=== PATIENT | female | born 1995 | race Caucasian/White ===

== ENCOUNTER 2017-10-29 20:48 | Emergency (ER) | payer BC, OTHER ==
[~2017-10-29] VITALS: Ht 165.1 cm; Wt 40.6 kg
[2017-10-29 20:52] VITALS: TEMP 36.7; Ht 165.1 cm; Wt 40.6 kg
[2017-10-29 22:06] VITALS: BP 96/58; PULSE 82; O2SAT 100
--- NOTE | 2017-10-30 04:52 | EMERGENCY ROOM VISIT NOTE ---
History First contact with patient: 21:43 Chief Complaint: EYE ASSESSMENT Stated Complaint: TROUBLE WITH EYES History of Present Illness The patient is a 22 year old female who presents to the Emergency Room with complaints of blurriness in her eyes that occurred earlier this afternoon. The patient states that she took a nap earlier today, and when she awoke she felt like she had difficulty seeing, describing this as a blurriness across both of her eyes. The patient does wear glasses and had an eye doctor appointment a few months ago. She did not have pain, drainage, or discharge from the eyes. She states that after about 30 minutes to 1 hour her vision was completely back to normal. She was not experiencing any visual floaters or headache symptoms. No numbness or paresthesias. No temporal pain. The patient is reportedly healthy and does not take anything other than vitamins. She does admit that she may be , as her last menstrual period was 7 weeks ago. She does have an appointment with OB next week. The patient rates her current discomfort as 0/10. Review of Systems More than 10 systems were reviewed and otherwise negative with the exception of history of present illness. Past Medical/Surgical History Medical Problems: (1) Head Injury, Nos (2) Head Injury, Nos (3) Nausea With Vomiting Family History FHx: migraine headaches Social History Smoking Status: Never Smoker Housing Status: lives with family Occupation Status: student Physical Exam Vital Signs Date Time Temp Pulse Resp B/P (MAP) Pulse Ox O2 Delivery O2 Flow Rate FiO2 10/29/17 22:06 82 16 96/58 100 10/29/17 20:52 36.7 110 20 105/68 100 Room Air Physical Exam VITALS: Vitals are noted on the nurse's note and reviewed by myself. Vital signs stable. Visual acuity is 20/20 bilateral with correction GENERAL: Well-developed, well-nourished, white female, who is in no acute distress and resting comfortably. Patient is cooperative with the examination. HEAD: Normocephalic atraumatic. EARS: External ear normal. External auditory canals clear, tympanic membranes pearly gore without erythema or effusion bilaterally. EYES: Pupils equal round and reactive to light and accommodation. Conjunctivae without injection, sclerae without icterus. Extraocular movements intact. Fluorescein exam does not reveal foreign body or ulceration/abrasion. No evidence of conjunctivitis. NOSE: Patent, turbinates without inflammation or discharge. MOUTH: Mucous membranes moist. Tonsils are not enlarged. Pharynx without erythema, blood, or exudate. Uvula midline. Airway patent. NECK: Supple without nuchal rigidity. No lymphadenopathy. No thyromegaly. Cervical spine is nontender. HEART: Regular rate and rhythm without murmurs gallops or rubs. LUNGS: Clear to auscultation bilaterally without wheezes, rales or rhonchi. No retractions or accessory muscle use. Medical Decision & Procedures ED Course Physical exam and history were performed. Nursing notes, EMR, and Medication List were personally reviewed. Patient appears to have had blurriness in her eyes after waking from a nap this afternoon. On examination the patient appears well and nontoxic. She does not have other symptoms and is feeling completely back to normal. The patient did not have headache or eye pain at the time of her symptoms. She does not have a history of atypical migraines or demyelinating process. The patient does not appear to have symptoms consistent with stroke or vertebral artery dissection. She does not have foreign body on exam, nor does she have abrasion/ulceration. Overall the patient appears well for discharge home. Her symptoms are likely benign, and could be related to rubbing her eyes while sleeping or possible viral/allergic etiology. The patient does follow with an eye doctor and will be referred back to their care if she has any persisting symptoms. The patient was otherwise invited back to the ER with any new, worsening, or concerning symptoms. The chart was completed utilizing [employer] Speech Voice Recognition Software. Grammatical errors, random word insertions, pronoun errors, and incomplete sentences are an occasional consequence of this system due to software limitations, ambient noise, and hardware issues. Any formal questions or concerns about the content, text, or information contained within the body of this dictation should be directly addressed to the provider for clarification. . Medical Decision Differential diagnosis includes, but is not limited to: Abrasion, foreign body, laceration, conjunctivitis, neurologic deficit, glaucoma, atypical migraine, demyelinating disorder, stroke, and others Impression Primary Impression: Visual blurriness Departure Information Dispostion Home / Self-Care Condition GOOD Forms HOME CARE DOCUMENTATION FORM, IMPORTANT VISIT INFORMATION Patient Instructions My [facility] Additional Instructions You were seen and evaluated today on an emergency basis only. This is not a substitute for, or an effort to provide, complete comprehensive medical care. It is not possible to recognize and treat all injuries or illnesses in a single emergency department visit. For this reason it is recommended that you followup with your oil sprayer/ vice president of procurement if symptoms persist over the next 3-4 days. Consider using [id number] rewetting drops two or three times daily You are welcome to return to the emergency department anytime with new, worsening, or concerning symptoms.
== END 2017-10-29 22:07 | disposition home or self-care (01) ==
LOC: C.EDB 20:49 → C.EDC 22:07
DX: H53.8 Other visual disturbances (principal)

== ENCOUNTER → 2017-10-30 | Outpatient (CLI) | payer OTHER | END | disposition home or self-care (01) | LOC: C.LABSPEC 16:52 | PROVIDERS: ATTEND Obstetrics & Gynecology | DX: Z34.01 Encounter for supervision of normal first pregnancy, first trimester (principal) ==

== ENCOUNTER → 2017-11-05 | Outpatient (CLI) | payer OTHER ==
[2017-11-05 16:35] LABS: BASO % 0.2 %; BASO ABS # 0.02 K/uL (0-0.2); EOS % 0.2 %; EOS ABS # 0.02 K/uL (0-0.5); HEMATOCRIT 35.9 % (37-47); HEMOGLOBIN 12.1 g/dL (12.0-16.0); IG# 0.02 K/uL (0.00-0.02); LYMPH % 20.2 %; LYMPH ABS # 1.68 K/uL (1.2-3.4); MEAN CELL VOLUME 85.1 fL (80-100); MEAN CORPUSCULAR HEMOGLOBIN 28.7 pg (25-34); MEAN CORPUSCULAR HGB CONC 33.7 g/dl (32-36); MEAN PLATELET VOLUME 10.7 fL (7.4-10.4); MONO % 4.9 %; MONO ABS # 0.41 K/uL (0.11-0.59); NEUT % 74.3 %; NEUT ABS # 6.18 K/uL (1.4-6.5); PLATELET COUNT 260 K/uL (130-400); RED CELL DISTRIBUTION WIDTH CV 12.5 % (11.5-14.5); RED CELL DISTRIBUTION WIDTH SD 38.6 fL (36.4-46.3); WHITE BLOOD COUNT 8.33 K/uL (4.8-10.8)
== END | disposition home or self-care (01) ==
LOC: C.LAB1850 15:05
PROVIDERS: ATTEND Obstetrics & Gynecology
DX: Z34.01 Encounter for supervision of normal first pregnancy, first trimester (principal)

== ENCOUNTER 2018-06-18 05:04 | Inpatient (IN) ==
[2018-06-18] MEDS ORDERED: OXYTOCIN 30 UNITS/500 ML BAG IV PRN (08:51)
[2018-06-18] MEDS ORDERED: LACTATED RINGER'S 1,000 ML IV PRN ×2 (08:51→09:30)
--- NOTE | 2018-06-18 08:55 | Labor Progress Brief Note ---
Date of Service June 18, 2018 Subjective 23yo at 40 3/7 with onset of painful contractions. Examined earlier this AM by RN and felt to be 2cm. No LOF, VB. +FM. Assessment & Plan (1) Normal labor and delivery: Patient will be admitted for active labor. Requesting epidural; aware of need for stat labs and IV placement first. GBS neg. Rh pos. Physical Exam Vital Signs (Past 24 Hours): Last Vital Signs Temp 36.4 C L 06/18/18 07:20 Pulse 92 H 06/18/18 07:20 Resp 20 06/18/18 07:20 BP 105/61 06/18/18 07:20 Physical Exam: FHT Cat 1 [place] Q2 Cvx 6/100/-2 No ROM, bulging intact bag Palpable vertex.
[2018-06-18] MEDS ORDERED: LACTATED RINGER'S 1,000 ML IV SCH (09:00)
[2018-06-18 09:12] LABS: Hematocrit (blood only) 35.1 % (37-47); Hemoglobin 11.7 g/dL (12.0-16.0); Mean Corpuscular Volume 91.4 fL (80-100); Mean Platelet Volume 10.8 fL (7.4-10.4); Platelet Count 247 K/uL (130-400); RDW Standard Deviation 46.3 fL (36.4-46.3); Red Blood Count 3.84 M/uL (4.2-5.4); White Blood Count 12.83 K/uL (4.8-10.8)
[2018-06-18] MEDS ORDERED: BUPIVACAINE 0.25% 30 ML VIAL ONE (09:12)
[2018-06-18] MEDS ORDERED: ePHEDrine sulfate 50 MG/ML AMP ONE (09:12)
[2018-06-18] MEDS ORDERED: fentaNYL 2MCG/ML ROPIV 1.25MG/ML 100 ML BAG EPI ONE (09:13)
[2018-06-18] MEDS ORDERED: fentaNYL citrate 100 MCG/2 ML VIAL ONE (09:13)
[2018-06-18 09:25] LABS: Mean Corpuscular Hgb Conc 33.3 g/dL (32-36)
[2018-06-18] MEDS ORDERED: NALBUPHINE HCL INJ 10 MG/ML AMP IV PRN (09:30)
[2018-06-18] MEDS ORDERED: NALOXONE HCL 1 MG in SODIUM CHLORIDE 0.9% 1000ML 1,000 ML IV PRN (09:30)
[2018-06-18] MEDS ORDERED: ONDANSETRON INJ 2 MG/ML 2 ML VIAL IV PRN (09:30)
[2018-06-18] MEDS ORDERED: NALOXONE HCL 0.4 MG/1 ML VIAL/CARP IV PRN (09:30)
[2018-06-18] MEDS ORDERED: fentaNYL 2MCG/ML ROPIV 1.25MG/ML 100 ML BAG EPI PRN (09:30)
[2018-06-18] MEDS ORDERED: ePHEDrine sulfate 50 MG/ML AMP IV PRN (09:30)
[2018-06-18] MEDS ORDERED: DiphenhydrAMINE HCL 50 MG/ML VIAL IV PRN (09:30)
--- NOTE | 2018-06-18 09:31 | Anesthesiology Consultation ---
Date of Service June 18, 2018 Assessment & Plan (1) Encounter for pre-operative examination: Chart Review Chart Review: Patient NOT seen in Pre Admission Testing and Acceptable Risk for Labor Epidural Consults Requested none History Height/Weight Height: 5 ft 5 in Weight: 59.421 kg Allergies Allergy/AdvReac Type Severity Reaction Status Date / Time No Known Allergies Allergy Mild Verified 06/18/18 05:56 Medications Home Medications Medication Instructions Recorded Confirmed Last Taken pedi multivit 43-iron fumarate 1 tab PO DAILY 06/18/18 06/18/18 06/17/18 21:00 [Flintstones Complete (iron)] Active Medications Generic Name Dose Route Start Last Admin Trade Name Freq PRN Reason Stop Dose Admin Lactated Ringer's 1,000 mls @ 999 mls/hr 06/18/18 08:51 06/18/18 09:00 Lr IV 07/18/18 08:50 999 mls/hr .Q1H1M PRN Administration (Pre-Anesthesia) Past Medical History Medical History First trimester Past Surgical History no surgeries Past Anesthesia History No Hx of Anesthesia Complications and No Family Hx of Anesthesia Complications History of PONV No Motion Sickness Screening History of Motion Sickness: No Social History Smoking Status: Never smoker Hx Alcohol Use: No Hx Substance Use: No substance use type: does not use Exercise / Class Metabolic Activity II 4-5 Yardwork/Stairs/Walk up hill Physical Exam Vital Signs Last Vital Signs Temp 36.4 C L 06/18/18 07:20 Pulse 92 H 06/18/18 07:20 Resp 20 06/18/18 07:20 BP 105/61 06/18/18 07:20 Testing Laboratory Results 06/18/18 09:01
--- NOTE | 2018-06-18 10:55 | Labor Progress Brief Note ---
Date of Service June 18, 2018 Subjective Comfortable with epidural. Assessment & Plan (1) Normal labor and delivery: Begins second stage at will. Physical Exam Vital Signs (Past 24 Hours): Last Vital Signs Temp 36.8 C 06/18/18 10:35 Pulse 93 H 06/18/18 10:50 Resp 20 06/18/18 10:35 BP 105/55 L 06/18/18 10:50 Pulse Ox 97 06/18/18 10:48 Physical Exam: FHT Cat 1 [place] Q2 SROM around an hour ago; LOF clear now with moderate bloody show Cvx 10/+1
[2018-06-18] MEDS ORDERED: HYDROCORTISONE ACETATE 25 MG SUPP PR PRN (12:21)
[2018-06-18] MEDS ORDERED: SUPERCREAM 0.870% 15 GM JAR EXT PRN (12:21)
[2018-06-18] MEDS ORDERED: DIPHTHERIA/TETANUS/PERTUSSIS 0.5 ML SYR/VIAL IM ONE (12:21)
[2018-06-18] MEDS ORDERED: BENZOCAINE 20% AER SPR 82.5 GM CAN EXT PRN (12:21)
[2018-06-18] MEDS ORDERED: OXYCODONE/ACETAMINOPHEN 5mg/325mg TAB PO PRN (12:21)
[2018-06-18] MEDS ORDERED: ACETAMINOPHEN 325 MG TAB PO PRN (12:21)
--- NOTE | 2018-06-18 12:21 | Procedure Note ---
Vaginal Delivery Summary Date of Service June 18, 2018 Vaginal Delivery Summary Patient pushed to deliver a viable female infant in AYAH position. The infant delivered with a compound presentation of the left arm. Shoulders delivered with no difficulty followed by the remainder of the body. The vigorous infant was placed on the maternal abdomen, cord was doubly clamped, and FOB cut the cord. The was provided with tactile stimulation and bulb suction. Examination of the cervix, vagina and perineum revealed a second degree laceration and a left labia minora laceration. These were repaired in the usual manner with vicryl suture, including a crown suture to rebuild the perineal body. The placenta then delivered spontaneously and was intact with a 3VC. At the completion of delivery the fundus was firm, lochia was minimal, and mom and infant were in stable condition.
[2018-06-18] MEDS: IBUPROFEN 600 MG TAB PO PRN ×2 (12:28→19:21)
--- NOTE | 2018-06-18 14:39 | Anesthesia Procedure Note ---
Date of Service June 18, 2018 Anesthesia Post Epidural Note Vital Signs Vital Signs: Temp Pulse Resp BP Pulse Ox 36.5 C 96 H 18 101/56 L 97 06/18/18 13:35 06/18/18 14:34 06/18/18 13:50 06/18/18 14:34 06/18/18 12:13 Pain Intensity Abdomen: Pain Intensity: 0 Notes Mental Status: alert / awake / arousable Patient Amnestic to Procedure: No Nausea / Vomiting: adequately controlled Pain: adequately controlled Airway Patency, RR, SpO2: stable & adequate BP & HR: stable & adequate Hydration State: stable & adequate Neuraxial Anesthesia: was administered and sensory block is resolving Anesthetic Complications: no major complications apparent and Pt Satisfied with anesthetic care Epidural: Removed without complications and With tip intact
[2018-06-18] MEDS: DOCUSATE SODIUM 100 MG CAP PO SCH (21:20)
[2018-06-19] MEDS: IBUPROFEN 600 MG TAB PO PRN ×3 (00:17→16:07)
[2018-06-19 06:36] LABS: Hematocrit (blood only) 31.3 % (37-47); Hemoglobin 10.8 g/dL (12.0-16.0); Mean Corpuscular Hgb Conc 34.5 g/dL (32-36); Mean Corpuscular Volume 91.3 fL (80-100); Mean Platelet Volume 10.7 fL (7.4-10.4); Platelet Count 217 K/uL (130-400); RDW Standard Deviation 46.6 fL (36.4-46.3); Red Blood Count 3.43 M/uL (4.2-5.4)
--- NOTE | 2018-06-19 06:43 | Obstetrical Progress Note ---
Date of Service June 19, 2018 Assessment & Plan (1) Spontaneous vaginal delivery: Ana Gallego is 23 y/o, , with at 40.3 weeks, GBS-, O+, Rubella immune, VDRL unreactive, G/C - - PPD #1 - encourage ambulation, , analgesics for pain relief, continue routine post- care. (2) Normal labor and delivery: Subjective Ambulation: ambulating normally Voiding: no voiding problems Passing Gas:: Yes Diet Tolerance:: regular diet Lochia:: Small Feeding Type:: breast feeding Ana torres pelvic discomfort from vaginal delivery yesterday that is improved with analgesics. She denies fever, chills, chest pain, shortness of breath, headache, nausea, vomiting. Physical Exam Vital Signs (Past 24 Hours) Last Vital Signs Temp 36.8 C 06/19/18 03:00 Pulse 97 H 06/19/18 03:00 Resp 18 06/19/18 03:00 BP 102/69 06/19/18 03:00 Pulse Ox 97 06/19/18 03:00 Constitutional WD/WN, vitals as above cooperative and comfortable Eyes + anicteric sclerae and EOM intact bilaterally Neck normal visual inspection and trachea midline Respiratory normal respiratory effort, lungs clear to auscultation Cardiovascular RRR, no murmur, no edema Gastrointestinal (Abdomen) Percussion/Palpation: abdomen soft; abdomen nontender uterine fundus is firm, non-tender, 2cm below umbilicus Musculoskeletal Head/Neck/Chest: normocephalic and head atraumatic Skin no rashes, warm and dry Neurologic moves all extremities and awake Psychiatric A+Ox3, euthymic affect Results & Data Laboratory Results Laboratory Results - last 24 hr 06/18/18 06/19/18 09:01 06:14 WBC 12.83 H 11.70 H RBC 3.84 L 3.43 L Hgb 11.7 L 10.8 L Hct 35.1 L 31.3 L MCV 91.4 91.3 MCH 30.5 31.5 MCHC 33.3 34.5 RDW Std Deviation 46.3 46.6 H RDW Coeff of Emiliano 14.0 14.0 Plt Count 247 217 MPV 10.8 H 10.7 H Medications Administered Acetaminophen (Tylenol) 650 mg PO Q6H PRN PRN Reason: Pain/ALMAGUER/Fever Stop: 07/18/18 12:20 Last Admin: 06/18/18 20:35 Dose: 650 mg Documented by: [id number] Benzocaine (Dermoplast Pain Relieving [place]) 1 appln EXT PRN PRN PRN Reason: Perineal Discomfort Stop: 07/18/18 12:20 Last Admin: 06/18/18 19:22 Dose: 1 appln Documented by: [id number] Docusate Sodium (Colace) 100 mg PO BID GIOVANA Stop: 07/18/18 20:59 Last Admin: 06/18/18 21:20 Dose: 100 mg Documented by: [id number] Ibuprofen (Motrin) 600 mg PO Q4H PRN PRN Reason: Pain/ALMAGUER/Cramping/Fever Stop: 07/18/18 12:20 Last Admin: 06/19/18 00:17 Dose: 600 mg Documented by: [id number] Admin: 06/18/18 19:21 Dose: 600 mg Documented by: [id number] Admin: 06/18/18 12:28 Dose: 600 mg Documented by: [id number]
[2018-06-19] MEDS: DOCUSATE SODIUM 100 MG CAP PO SCH ×2 (08:06→21:50)
[2018-06-19] MEDS ORDERED: PRENATAL VITAMIN 1 TAB PO SCH (09:00)
--- NOTE | 2018-06-20 06:32 | Obstetrical Progress Note ---
Date of Service <Herb Guajardo - Last Filed: 06/20/18 06:32> June 20, 2018 Assessment & Plan <Herb GuajardoDO - Last Filed: 06/20/18 06:32> (1) Spontaneous vaginal delivery: Ana Gallego is 23 y/o, , with at 40.3 weeks, GBS-, O+, Rubella immune, VDRL unreactive, G/C - - PPD #2 - encourage ambulation, , analgesics for pain relief, continue routine post- care until discharge home today - discharge instructions reviewed at bedside, all questions and concerns addressed (2) Normal labor and delivery: Subjective <Herb DO Bennett - Last Filed: 06/20/18 06:32> Ambulation: ambulating normally Voiding: no voiding problems Passing Gas:: Yes Diet Tolerance:: regular diet Lochia:: Small Feeding Type:: breast feeding Ana states she is doing well this morning and would like to be discharged home. There were no acute events overnight. She denies fevers, chills, headache, chest pain, shortness of breath, nausea, vomiting, difficulty with urination. Physical Exam <Herb Guajardo - Last Filed: 06/20/18 06:32> Vital Signs (Past 24 Hours) Last Vital Signs Temp 36.6 C 06/20/18 00:00 Pulse 98 H 06/20/18 00:00 Resp 18 06/20/18 00:00 BP 102/64 06/20/18 00:00 Pulse Ox 96 06/20/18 00:00 Constitutional WD/WN, vitals as above cooperative and comfortable Eyes + anicteric sclerae and EOM intact bilaterally Neck normal visual inspection and trachea midline Respiratory normal respiratory effort, lungs clear to auscultation Cardiovascular RRR, no murmur, no edema Gastrointestinal (Abdomen) Percussion/Palpation: abdomen soft; abdomen nontender uterine fundus is [id number]. 2cm inferior to umbilicus Musculoskeletal Head/Neck/Chest: normocephalic and head atraumatic Skin no rashes, warm and dry Neurologic moves all extremities and awake Psychiatric A+Ox3, euthymic affect Results & Data <Herb DO Bennett - Last Filed: 06/20/18 06:32> Laboratory Results Laboratory Results - last 24 hr 06/19/18 06:14 WBC 11.70 H RBC 3.43 L Hgb 10.8 L Hct 31.3 L MCV 91.3 MCH 31.5 MCHC 34.5 RDW Std Deviation 46.6 H RDW Coeff of Emiliano 14.0 Plt Count 217 MPV 10.7 H Medications Administered Acetaminophen (Tylenol) 650 mg PO Q6H PRN PRN Reason: Pain/ALMAGUER/Fever Stop: 07/18/18 12:20 Last Admin: 06/18/18 20:35 Dose: 650 mg Documented by: [id number] Benzocaine (Dermoplast Pain Relieving [place]) 1 appln EXT PRN PRN PRN Reason: Perineal Discomfort Stop: 07/18/18 12:20 Last Admin: 06/18/18 19:22 Dose: 1 appln Documented by: [id number] Cocaine HCl (Supercream 0.870%) 1 gm EXT BID PRN PRN Reason: Hemorrhoidal Inflammation Stop: 07/02/18 12:20 Last Admin: 06/19/18 15:12 Dose: 1 gm Documented by: [id number] Docusate Sodium (Colace) 100 mg PO BID GIOVANA Stop: 07/18/18 20:59 Last Admin: 06/19/18 21:50 Dose: 100 mg Documented by: [id number] Admin: 06/19/18 08:06 Dose: 100 mg Documented by: [id number] Admin: 06/18/18 21:20 Dose: 100 mg Documented by: [id number] Ibuprofen (Motrin) 600 mg PO Q4H PRN PRN Reason: Pain/ALMAGUER/Cramping/Fever Stop: 07/18/18 12:20 Last Admin: 06/19/18 16:07 Dose: 600 mg Documented by: [id number] Admin: 06/19/18 08:06 Dose: 600 mg Documented by: [id number] Admin: 06/19/18 00:17 Dose: 600 mg Documented by: [id number] Admin: 06/18/18 19:21 Dose: 600 mg Documented by: [id number] Admin: 06/18/18 12:28 Dose: 600 mg Documented by: [id number] <Michael Felder Jr, MD, FACOG - Last Filed: 06/20/18 08:21> Co-Signing Physician Notes Resident Physician Supervision Note: I was present with Dr. Guajardo during the history and exam. I discussed the case with the resident and agree with the findings and plan as documented in the note. Any exceptions or clarifications are listed here: D/C instructions given Documented By: Michael Felder Jr, MD, FACOG
[2018-06-20 06:39] LABS: Hematocrit (blood only) 32.5 % (37-47); Hemoglobin 10.7 g/dL (12.0-16.0)
[2018-06-20] MEDS: IBUPROFEN 600 MG TAB PO PRN ×2 (09:36→14:12)
== END 2018-06-20 14:55 | disposition home or self-care (01) | DRG 807 ==
LOC: OPB 05:04 → 4S1 05:12 → 4S2 15:46

== ENCOUNTER 2019-01-30 07:35 | Observation (INO) ==
[2019-01-30] MEDS ORDERED: KETOROLAC TROMETHAMINE 15 MG/ML VIAL IV STA (08:04)
[2019-01-30] MEDS ORDERED: SODIUM CHLORIDE 0.9% 1000ML 1,000 ML IV SCH (08:04)
--- NOTE | 2019-01-30 08:15 | Emergency Department Note ---
History of Present Illness General Chief complaint: Flank Pain Stated complaint: PAIN IN RIGHT SIDE Time Seen by Provider: 01/30/19 07:46 History of Present Illness Maximum Pain Intensity: 10 Patient is an otherwise healthy 23-year-old female who presents the emergency department for evaluation of right lower quadrant pain that started about an hour ago. She states the pain woke her from sleep. She notes a constant, aching pain in the right lower quadrant that was originally mild, but has been increasing. She states that radiates down toward her groin. No radiation to her back or flank. She had dry heaves, but no true vomiting, and denies feeling nauseous currently. She rates her pain a 10/10. She has not taken any medication nor performed any intervention for her symptoms. She denies dysuria or hematuria, but does note increased urinary frequency since the pain started. She had a normal bowel movement last evening. She is G1, P1 has a 7-month-old at home, she is not currently breast-feeding. Her last menstrual period ended on Friday, 01/24 and was normal for her. She denies any significant gynecologic history. Home Medications Home Medications Medication Instructions Recorded Confirmed Type No Known Home Medications 01/30/19 01/30/19 History Allergies Allergy/AdvReac Type Severity Reaction Status Date / Time No Known Allergies Allergy Verified 10/19/18 14:31 Past Med/Surg History Medical History H/O varicella No pertinent past medical history (Chronic) Surgical History S/P wisdom tooth extraction (Resolved) Family History Grandmother (Maternal) Hypertension Mother Migraine headache Social History Preferred Language: Colombian Communication Ability: Effective Hamper Maker Machine Required: No Beliefs That Will Affect Care: None marital status: Single Current Living Situation: Parent and Family Feels Safe at Home: Yes Smoking Status: Never smoker Second Hand Exposure: No ; Hx Alcohol Use: No Hx Substance Use: No Review of Systems A total of 10 systems reviewed and were otherwise negative Physical Exam Vital Signs Vital Signs - 24 hr 01/30/19 07:41 01/30/19 09:35 01/30/19 11:00 Temperature 36.5 C Temperature Source Oral Pulse Rate 83 Pulse Rate [Apical] 70 69 Respiratory Rate 20 16 16 Respiratory Effort / Characteristics Non-Labored Spontaneous Respiratory Depth Normal Respiratory Pattern Regular Blood Pressure 92/63 L Blood Pressure [Left Arm] 95/50 L 92/49 L Blood Pressure Mean 72 Blood Pressure Mean [Left Arm] 65 63 Blood Pressure Position Sitting Pulse Oximetry 100 100 98 Oxygen Delivery Method Room Air Room Air Room Air Sepsis Recent Fever Within 48 Hours No Sepsis Action Taken by Nursing No Action Required 01/30/19 13:14 Temperature Temperature Source Pulse Rate Pulse Rate [Apical] 92 H Respiratory Rate 16 Respiratory Effort / Characteristics Respiratory Depth Respiratory Pattern Blood Pressure Blood Pressure [Left Arm] 103/64 Blood Pressure Mean Blood Pressure Mean [Left Arm] 77 Blood Pressure Position Pulse Oximetry 99 Oxygen Delivery Method Room Air Sepsis Recent Fever Within 48 Hours Sepsis Action Taken by Nursing CONSTITUTIONAL: Patient is a well-appearing 23-year-old female who is awake and alert and in no acute distress. Vital signs are stable. EYES: Pupils equal, round, reactive to light and accommodation. EOMs intact without nystagmus. Sclera are anicteric. ENT: Tympanic membranes intact, with normal landmarks. External canals are clear. Oral and nasopharynx are clear. Mucous membranes are moist, no lesions, tongue and gums appear normal. NECK: No bruits auscultated. Supple without lymphadenopathy. No thyromegaly. No meningeal signs. Full active range of motion without discomfort. CARDIOVASCULAR: Regular rate and rhythm, with normal S1 and S2, no murmur or ga llop or rub is heard. No carotid bruits auscultated. No JVD. Peripheral pulses easily palpable. RESPIRATORY: Breath sounds equal and clear to auscultation without wheezes, rales, or rhonchi heard. Full and equal chest expansion without accessory muscle use or retractions. ABDOMEN: Bowel sounds are present. Abdomen soft, scaphoid, mildly tender to percussion over the right lower quadrant and tender to palpation in the right lower quadrant without guarding, rebound or rigidity. No rebound or referred rebound tenderness. INTEGUMENTARY: No lesions or rash, normal skin turgor. LYMPH: No lymphadenopathy. Course Course The patient was seen and assessed as above. She presents to the emergency department for evaluation of right lower quadrant abdominal pain. She has some mild associated urinary symptoms as well. She is tender in the right lower quadrant on exam, but no findings consistent with surgical abdomen. IV lock was initiated. She was hydrated with normal saline solution and medicated with Toradol 15 mg IV. CBC with differential, CMP, urinalysis, urine test were collected. Laboratory studies noted a white count of 19,200, with left shift and bandemia noted. Electrolytes and renal functions are within normal limits. Transaminases are elevated. Urinalysis notes 2+ blood, 1+ leukocyte esterase and greater than 30 WBCs, 2+ bacteria. Sample is contaminated with greater than 30 epithelial cells, but given her symptoms, culture is obtained and is pending. Urine test is negative. Patient was reassessed and made aware of the results of her laboratory studies. She was made aware that ultrasound and CT scan were both ordered. Patient went for ultrasound. She tolerated her CT prep without difficulty. She was reassessed when she returned from ultrasound. The pelvic ultrasound was unremarkable. Endometrial stripe is 4 mm, no abnormal findings in the adnexal area, specifically on the right. Color flow is documented. Patient was made aware of the results of her ultrasound, and that we would continue with the CT scan. CT scan of the abdomen and pelvis noted the appendix to be thickened measuring up to 9 mm and did not fill with contrast. No periappendiceal inflammatory changes. Surgical consult was advised. Patient history and presentation were reviewed with attending physician. CT scan findings were discussed with the patient and her family. Consultation was placed with Dr. Leonardo of general surgery. She will take the patient to the OR for surgical intervention. Administered Medications Sodium Chloride (Nss 1000ml) 1,000 mls @ 250 mls/hr IV .Q4H [facility] Stop: 03/01/19 08:14 Last Infusion: 01/30/19 14:05 Dose: 0 mls/hr Documented by: [id number] Admin: 01/30/19 10:00 Dose: 250 mls/hr Documented by: [id number] Ioversol (Optiray 320 100ml) 94 ml IV ONCE PRN PRN Reason: Interaction Checking Stop: 02/03/19 11:24 Last Admin: 01/30/19 11:25 Dose: 94 ml Documented by: [id number] Discontinued Medications Sodium Chloride (Nss 1000ml) 1,000 mls @ 999 mls/hr IV .Q1H1M [facility] Stop: 01/30/19 09:04 Last Infusion: 01/30/19 09:24 Dose: 0 mls/hr Documented by: [id number] Admin: 01/30/19 08:18 Dose: 999 mls/hr Documented by: [id number] Cefoxitin Sodium (Mefoxin) 1,000 mg in 50 mls @ 100 mls/hr IV NOW STA Stop: 01/30/19 13:48 Last Infusion: 01/30/19 15:00 Dose: 0 mls/hr Documented by: [id number] Admin: 01/30/19 14:27 Dose: 100 mls/hr Documented by: [id number] Ketorolac Tromethamine (Toradol) 15 mg IV NOW STA Stop: 01/30/19 08:05 Last Admin: 01/30/19 08:18 Dose: 15 mg Documented by: [id number] Medical Decision Making Differential Diagnosis Differential diagnoses entertained included UTI, pyelonephritis, renal colic, ovarian cyst, ovarian torsion, , ectopic , PID, tubo-ovarian abscess, appendicitis, mesenteric adenitis, among others. Medical Records Attestation: I reviewed the patient's medical records. Home Medications Current Medication List: was personally reviewed by me Laboratory Data Attestation: I reviewed the patient's lab results. Result diagrams: 01/30/19 08:00 01/30/19 08:00 Lab Results 01/30/19 01/30/19 01/30/19 Range/Units 08:00 08:00 08:00 WBC 19.20 H (4.8-10.8) K/uL RBC 4.30 (4.2-5.4) M/uL Hgb 12.4 (12.0-16.0) g/dL Hct 36.5 L (37-47) % MCV 84.9 (80-100) fL MCH 28.8 (25-34) pg MCHC 34.0 (32-36) g/dL RDW Std Deviation 38.8 (36.4-46.3) fL RDW Coeff of Emiliano 12.6 (11.5-14.5) % Plt Count 256 (130-400) K/uL MPV 10.7 H (7.4-10.4) fL Immature Gran % (Auto) 0.3 % Neut % (Auto) 89.5 % Lymph % (Auto) 6.5 % [place] % (Auto) 3.5 % Eos % (Auto) 0.1 % Baso % (Auto) 0.1 % Immature Gran # (Auto) 0.05 H (0.00-0.02) K/uL Neut # (Auto) 17.20 H (1.4-6.5) K/uL Lymph # (Auto) 1.24 (1.2-3.4) K/uL [place] # (Auto) 0.67 H (0.11-0.59) K/uL Eos # (Auto) 0.02 (0-0.5) K/uL Baso # (Auto) 0.02 (0-0.2) K/uL Sodium 140 (136-145) mmol/L Potassium 3.6 (3.5-5.1) mmol/L Chloride 108 H (98-107) mmol/L Carbon Dioxide 24 (21-32) mmol/L Anion Gap 8.0 (3-11) BUN 9 (7-18) mg/dl Creatinine 0.74 (0.6-1.2) mg/dl Est Cr Clr Drug Dosing 89.2 ml/min Est GFR ( Amer) 134.2 Est GFR (Non-Af Amer) 115.8 BUN/Creatinine Ratio 11.9 (10-20) Glucose 126 H (70-99) mg/dl Calcium 9.1 (8.5-10.1) mg/dl Total Bilirubin 0.4 (0.2-1) mg/dl AST 6 L (15-37) U/L ALT 12 (12-78) U/L Alkaline Phosphatase 81 (45-117) U/L Total Protein 7.3 (6.4-8.2) gm/dl Albumin 4.2 (3.4-5.0) gm/dl Globulin 3.1 (2.5-4.0) gm/dl Albumin/Globulin Ratio 1.4 (0.9-2) Urine Color Urine Appearance (Clear) Urine pH (4.5-7.5) Ur Specific [place] (1.000-1.030) Urine Protein (Negative) Urine Glucose (UA) (Negative) Urine Ketones (Negative) Urine Blood (Negative) Urine Nitrite (Negative) Urine Bilirubin (Negative) Urine Urobilinogen (Negative) Ur Leukocyte Esterase (Negative) Urine WBC (Auto) (0-5) /hpf Urine RBC (Auto) (0-4) /hpf U Hyaline Cast (Auto) (0-5) /lpf U Epithel Cells (Auto) (0-5) /lpf Urine Bacteria (Auto) (Negative) POC Ur Test NEG (NEG) 01/30/19 Range/Units 08:00 WBC (4.8-10.8) K/uL RBC (4.2-5.4) M/uL Hgb (12.0-16.0) g/dL Hct (37-47) % MCV (80-100) fL MCH (25-34) pg MCHC (32-36) g/dL RDW Std Deviation (36.4-46.3) fL RDW Coeff of Emiliano (11.5-14.5) % Plt Count (130-400) K/uL MPV (7.4-10.4) fL Immature Gran % (Auto) % Neut % (Auto) % Lymph % (Auto) % [place] % (Auto) % Eos % (Auto) % Baso % (Auto) % Immature Gran # (Auto) (0.00-0.02) K/uL Neut # (Auto) (1.4-6.5) K/uL Lymph # (Auto) (1.2-3.4) K/uL [place] # (Auto) (0.11-0.59) K/uL Eos # (Auto) (0-0.5) K/uL Baso # (Auto) (0-0.2) K/uL Sodium (136-145) mmol/L Potassium (3.5-5.1) mmol/L Chloride (98-107) mmol/L Carbon Dioxide (21-32) mmol/L Anion Gap (3-11) BUN (7-18) mg/dl Creatinine (0.6-1.2) mg/dl Est Cr Clr Drug Dosing ml/min Est GFR ( Amer) Est GFR (Non-Af Amer) BUN/Creatinine Ratio (10-20) Glucose (70-99) mg/dl Calcium (8.5-10.1) mg/dl Total Bilirubin (0.2-1) mg/dl AST (15-37) U/L ALT (12-78) U/L Alkaline Phosphatase (45-117) U/L Total Protein (6.4-8.2) gm/dl Albumin (3.4-5.0) gm/dl Globulin (2.5-4.0) gm/dl Albumin/Globulin Ratio (0.9-2) Urine Color Yellow Urine Appearance Cloudy A (Clear) Urine pH 6.5 (4.5-7.5) Ur Specific [place] 1.023 (1.000-1.030) Urine Protein 1+ H (Negative) Urine Glucose (UA) Negative (Negative) Urine Ketones Trace H (Negative) Urine Blood 2+ H (Negative) Urine Nitrite Negative (Negative) Urine Bilirubin Negative (Negative) Urine Urobilinogen Negative (Negative) Ur Leukocyte Esterase 1+ H (Negative) Urine WBC (Auto) >30 H (0-5) /hpf Urine RBC (Auto) 0-4 (0-4) /hpf U Hyaline Cast (Auto) 1-5 (0-5) /lpf U Epithel Cells (Auto) >30 H (0-5) /lpf Urine Bacteria (Auto) 2+ H (Negative) POC Ur Test (NEG) Imaging Data Attestation: I personally reviewed and interpreted this imaging study as follows: Radiologist's Impression: ABDOMEN AND PELVIS CT WITH IV AND ORAL CONTRAST CT DOSE: 260.23 mGy.cm HISTORY: Right lower quadrant abdominal pain. TECHNIQUE: Multiaxial CT images of the abdomen and pelvis were performed following the use of intravenous and oral contrast. A dose lowering technique was utilized adhering to the principles of ALARA. COMPARISON STUDY: Abdomen and pelvis CT 01/17/2016. FINDINGS: The lung bases are clear. No pneumoperitoneum. No pneumatosis. No fractures within the visualized osseous structures. The liver, spleen, adrenal glands, pancreas, gallbladder, and kidneys are unremarkable. No hydronephrosis. No retroperitoneal lymphadenopathy. The bladder is decompressed and not well visualized. The uterus and bilateral ovaries are within normal limits. Trace pelvic free fluid. No evidence for bowel obstruction. The appendix is identified within the right lower quadrant and is best seen on images 278 through 292. The appendix appears thickened measuring up to 9 mm in diameter. This has progressed in the interval when the appendix previously measured 6 mm. There is no periappendiceal inflammatory change. The appendix does not fill with contrast. IMPRESSION: The appendix appears thickened measuring up to 9 mm and does not fill with contrast. This has progressed in the interval. However, there are no periappendiceal inflammatory changes. Therefore, findings could represent a developing acute appendicitis. Surgical consultation is advised given the lack of significant periappendiceal inflammatory change. PELVIC ULTRASOUND, TRANSABDOMINAL AND TRANSVAGINAL HISTORY: Right lower quadrant abdominal pain. COMPARISON: Abdomen and pelvis CT 01/17/2016. FINDINGS: Uterus: Unremarkable. Endometrial stripe: 4 mm in thickness. Right ovary: Normal in size and demonstrates normal color flow. Left ovary: Normal in size and demonstrates normal color flow. Miscellaneous:Trace pelvic free fluid. IMPRESSION: 1. Normal uterus and ovaries. 2. Trace pelvic free fluid. This is likely physiologic. Blood Pressure Blood Pressure Findings: Normal blood pressure Blood Pressure Disposition: did not require urgent referral MDM Narrative See ED Course. Impression & Plan Acute appendicitis Discharge Plan Visit Data Chief Complaint: Flank Pain Stated Complaint: PAIN IN RIGHT SIDE ED Provider: Justin Valladares ED Midlevel Provider: Ronak Thomas Discharge Problem: Acute appendicitis Patient Disposition: Being Evaluated by Surgeon Discharge Instructions Interventions: ED Discharge Assessment Last Done: 01/30/19 15:12 Discharge Problem: Acute appendicitis Qualifiers: Acute appendicitis type: with localized peritonitis Appendicitis gangrene presence: without gangrene Appendicitis perforation presence: without perforation Appendicitis abscess presence: without abscess Qualified Code(s): K35.30 - Acute appendicitis with localized peritonitis, without perforation or gangrene
[2019-01-30 08:21] LABS: Basophils # (auto) 0.02 K/uL (0-0.2); Basophils % (auto) 0.1 %; Eosinophils # (auto) 0.02 K/uL (0-0.5); Eosinophils % (auto) 0.1 %; Hematocrit (blood only) 36.5 % (37-47); Hemoglobin 12.4 g/dL (12.0-16.0); Immature Granulocytes # (auto) 0.05 K/uL (0.00-0.02); Immature Granulocytes % (auto) 0.3 %; Lymphocytes # (auto) 1.24 K/uL (1.2-3.4); Lymphocytes % (auto) 6.5 %; Mean Corpuscular Hemoglobin 28.8 pg (25-34); Mean Corpuscular Volume 84.9 fL (80-100); Mean Platelet Volume 10.7 fL (7.4-10.4); Monocytes # (auto) 0.67 K/uL (0.11-0.59); Monocytes % (auto) 3.5 %; Neutrophils % (auto) 89.5 %; Platelet Count 256 K/uL (130-400); RDW Coefficient of Variation 12.6 % (11.5-14.5); RDW Standard Deviation 38.8 fL (36.4-46.3)
[2019-01-30 08:30] LABS: Appearance Urine Cloudy (Clear); Bacteria Urine Automated 2+ (Negative); Bilirubin Urine Negative (Negative); Blood Urine 2+ (Negative); Color Urine Yellow; Epithelial Cell Urine Auto >30 /lpf (0-5); Glucose Urine UA Negative (Negative); Ketones Urine Trace (Negative); Leukocyte Esterase Urine 1+ (Negative); Nitrite Urine Negative (Negative); Protein Urine 1+ (Negative); RBC Urine Automated 0-4 /hpf (0-4); Specific Gravity Urine 1.023 (1.000-1.030); Urobilinogen Urine Negative (Negative); WBC Urine Automated >30 /hpf (0-5); pH Urine 6.5 (4.5-7.5)
[2019-01-30 08:47] LABS: Albumin Level 4.2 gm/dl (3.4-5.0); BUN Creatinine Ratio 11.9 (10-20); Calcium 9.1 mg/dl (8.5-10.1); Creatinine Clr Calc Pharmacy 89.2 ml/min; Est GFR (African American) 134.2; Est GFR (Non-African American) 115.8; Potassium 3.6 mmol/L (3.5-5.1)
[2019-01-30 08:49] LABS: Albumin Globulin Ratio 1.4 (0.9-2); Bilirubin,Total 0.4 mg/dl (0.2-1); Globulin 3.1 gm/dl (2.5-4.0); Total Protein 7.3 gm/dl (6.4-8.2)
[2019-01-30] MEDS: SODIUM CHLORIDE 0.9% 1000ML 1,000 ML IV SCH ×4 (10:00→19:48)
--- NOTE | 2019-01-30 10:04 | Ultrasound Report ---
PELVIC ULTRASOUND, TRANSABDOMINAL AND TRANSVAGINAL HISTORY: Right lower quadrant abdominal pain. COMPARISON: Abdomen and pelvis CT 01/17/2016. FINDINGS: Uterus: Unremarkable. Endometrial stripe: 4 mm in thickness. Right ovary: Normal in size and demonstrates normal color flow. Left ovary: Normal in size and demonstrates normal color flow. Miscellaneous:Trace pelvic free fluid. IMPRESSION: 1. Normal uterus and ovaries. 2. Trace pelvic free fluid. This is likely physiologic. Electronically signed by: Tucker Kendall M.D. 01/30/2019 10:02 AM
[2019-01-30] MEDS ORDERED: IOVERSOL 100ml IV PRN (11:25)
--- NOTE | 2019-01-30 11:54 | CT Scan Report ---
ABDOMEN AND PELVIS CT WITH IV AND ORAL CONTRAST CT DOSE: 260.23 mGy.cm HISTORY: Right lower quadrant abdominal pain. TECHNIQUE: Multiaxial CT images of the abdomen and pelvis were performed following the use of intrave nous and oral contrast. A dose lowering technique was utilized adhering to the principles of ALARA. COMPARISON STUDY: Abdomen and pelvis CT 01/17/2016. FINDINGS: The lung bases are clear. No pneumoperitoneum. No pneumatosis. No fractures within the visu alized osseous structures. The liver, spleen, adrenal glands, pancreas, gallbladder, and kidneys are unremarkable. No hydronephrosis. No retroperitoneal lymphadenopathy. The bladder is decompressed and not well visualized. The uterus and bilateral ovaries are within normal limits. Trace pelvic free flu id. No evidence for bowel obstruction. The appendix is identified within the right lower quadrant and is best seen on images 278 through 292. The appendix appears thickened measuring up to [address] This has progressed in the interval when the appendix previously measured 6 mm. There is no aneesh appendiceal inflammatory change. The appendix does not fill with contrast. IMPRESSION: The appendix appears thickened measuring up to 9 mm and does not fill with contrast. This has progres sed in the interval. However, there are no periappendiceal inflammatory changes. Therefore, findings could represent a developing acute appendicitis. Surgical consultation is advised given the lack of s ignificant periappendiceal inflammatory change. Electronically signed by: Tucker Kendall M.D. 01/30/2019 11:53 AM
--- NOTE | 2019-01-30 13:10 | Anesthesiology Consultation ---
Date of Service January 30, 2019 Assessment & Plan Chart Review Chart Review: Acceptable Risk for Surgery and Patient NOT seen in Pre Admission Testing Consults Requested none ASA [id number] Proposed Anesthesia Anesthesia Type: General History Surgery Operation Date: 01/30/19 15:00 Proposed Procedures p Laparoscopic Appendectomy - Jaycee Leonardo MD Height/Weight Height: 5 ft 4 in Weight: 47 kg Allergies Allergy/AdvReac Type Severity Reaction Status Date / Time No Known Allergies Allergy Verified 10/19/18 14:31 Medications Home Medications Medication Instructions Recorded Confirmed Last Taken No Known Home Medications 01/30/19 01/30/19 Unknown Active Medications Generic Name Dose Route Start Last Admin Trade Name Freq PRN Reason Stop Dose Admin Ioversol 94 ml 01/30/19 11:25 01/30/19 11:25 Optiray 320 100ml IV 02/03/19 11:24 94 ml ONCE PRN Administration Interaction Checking Past Medical History Medical History H/O varicella No pertinent past medical history (Chronic) Exercise / Class Metabolic Activity 1 > 8 Run/Swim/Ski/Tennis Past Family History Family History Grandmother (Maternal) Hypertension Mother Migraine headache Past Surgical History Surgical History S/P wisdom tooth extraction (Resolved) Past Anesthesia History No Hx of Anesthesia Complications and No Family Hx of Anesthesia Complications History of PONV No Hx of PONV and No Hx of Motion Sickness Social History Smoking Status: Never smoker Hx Alcohol Use: No Hx Substance Use: No substance use type: does not use Physical Exam Vital Signs Last Vital Signs Temp 36.5 C 01/30/19 07:41 Pulse 69 01/30/19 11:00 Resp 16 01/30/19 11:00 BP 92/49 L 01/30/19 11:00 Pulse Ox 98 01/30/19 11:00 Testing Laboratory Results 01/30/19 08:00 01/30/19 08:00 Urine Color Yellow 01/30/19 08:00 Urine Appearance Cloudy (Clear) A 01/30/19 08:00 Urine pH 6.5 (4.5-7.5) 01/30/19 08:00 Ur Specific [place] 1.023 (1.000-1.030) 01/30/19 08:00 Urine Protein 1+ (Negative) H 01/30/19 08:00 Urine Glucose (UA) Negative (Negative) 01/30/19 08:00 Urine Ketones Trace (Negative) H 01/30/19 08:00 Urine Nitrite Negative (Negative) 01/30/19 08:00 Ur Leukocyte Esterase 1+ (Negative) H 01/30/19 08:00 Urine WBC (Auto) >30 /hpf (0-5) H 01/30/19 08:00 Urine RBC (Auto) 0-4 /hpf (0-4) 01/30/19 08:00 U Hyaline Cast (Auto) 1-5 /lpf (0-5) 01/30/19 08:00 U Epithel Cells (Auto) >30 /lpf (0-5) H 01/30/19 08:00 Urine Bacteria (Auto) 2+ (Negative) H 01/30/19 08:00 01/30/19 08:00 POC Ur Test NEG Electrocardiogram Date: 09/07/18 Findings: + NSR @ (at 83)
[2019-01-30] MEDS ORDERED: cefOXitin 1,000 MG/50 ML BAG IV STA (13:19)
--- NOTE | 2019-01-30 13:19 | History & Physical Report ---
Date of Service January 30, 2019 Assessment & Plan (1) Acute appendicitis: 23 yr old woman with signs/ symptoms suggestive of early acute appendicitis and CT scan showing dilated appendix that does not fill with contrast. Discussed options of antibiotic therapy vs surgery to remove appendix. Risks of recurrence, failure to improve with antibiotics discussed. Risks of surgery to include bleeding, infection, conversion to open, negative appendectomy, postop ileus/ abscess discussed. She prefers to have the appendix removed. Consent signed. Expected overnight hospital stay and 2 wk recovery reviewed. For OR today. Present on Admission?: Yes History of Present Illness Chief Complaint: abdominal pain Primary Care Provider: Iraj Calderon MD 23 yr old woman presents with a few hours of localized, sharp, intense right lower quadrant pain, worse with movement, laughter, somewhat better with pain meds, associated with nausea/ dry heaving this morning. No fevers/ chills. [place] anorexic with last meal last evening. No similar episodes in past. No radiation of the pain. 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 Beliefs That Will Affect Care: None marital status: Single Current Living Situation: Parent and Family Feels Safe at Home: Yes Smoking Status: Never smoker Second Hand Exposure: No ; Hx Alcohol Use: No Hx Substance Use: No Review of Systems Review of Systems: All systems reviewed & are unremarkable except as noted in HPI & below Physical Exam Constitutional: WD/WN, vitals as above Eyes: PERRL, conjunctivae normal, anicteric sclerae ENMT: Ears: no hearing impairment Neck: normal visual inspection and trachea midline Respiratory: normal respiratory effort, lungs clear to auscultation Cardiovascular: RRR, no murmur, no edema Gastrointestinal (Abdomen): Inspection/Auscultation: abdomen normal to inspection and normal bowel sounds; abdomen not distended Percussion/Palpation: + abdomen tender (rlq over mcburney's point), + guarding (rlq) and abdomen soft has umbilical ring Neurologic: moves all extremities; no focal motor deficits Psychiatric: A+Ox3, euthymic affect Results & Data Vital Signs (Past 12 Hours) Vital Signs Temp Pulse Pulse Resp BP BP Pulse Ox 01/30/19 11:00 69 16 92/49 L 98 01/30/19 09:35 70 16 95/50 L 100 01/30/19 07:41 36.5 C 83 20 92/63 L [address] 19.[address] scan abd/ pelvis IMPRESSION: The appendix appears thickened measuring up to 9 mm and does not fill with contrast. This has progressed in the interval. However, there are no periappendiceal inflammatory changes. Therefore, findings could represent a developing acute appendicitis. Surgical consultation is advised given the lack of significant periappendiceal inflammatory change. Pelvic ultrasound negative (1) Acute appendicitis Acute appendicitis type: with localized peritonitis Appendicitis abscess presence: without abscess Appendicitis gangrene presence: without gangrene Appendicitis perforation presence: without perforation Qualified Code(s): K35.30 - Acute appendicitis with localized peritonitis, without perforation or gangrene
[2019-01-30] MEDS ORDERED: ePHEDrine sulfate 50 MG/ML AMP IV PRN (14:20)
[2019-01-30] MEDS ORDERED: ONDANSETRON INJ 2 MG/ML 2 ML VIAL IV PRN ×2 (14:20→18:18)
[2019-01-30] MEDS ORDERED: PROMETHAZINE HCL 12.5 MG in SODIUM CHLORIDE 0.9% 50 ML IV PRN (14:20)
[2019-01-30] MEDS ORDERED: NALOXONE HCL 0.4 MG/1 ML VIAL/CARP IV PRN (14:20)
[2019-01-30] MEDS ORDERED: FLUMAZENIL 0.1 MG/1 ML 10 ML VIAL IV PRN (14:20)
[2019-01-30] MEDS ORDERED: ATROPINE SULFATE 0.1 MG/ML 10ML SYR IV PRN (14:20)
[2019-01-30] MEDS ORDERED: fentaNYL citrate 100 MCG/2 ML VIAL ONE ×2 (15:11→17:15)
[2019-01-30] MEDS ORDERED: MIDAZOLAM HCL 1 MG/ML 2ML VIAL ONE (15:12)
[2019-01-30] MEDS ORDERED: BUPIVACAINE 0.5 % 5 MG/1 ML MPF 30ML VIAL ONE (15:33)
[2019-01-30] MEDS ORDERED: SUCCINYLCHOLINE 100MG/5ML SYR ONE (16:25)
[2019-01-30] MEDS ORDERED: PROPOFOL IV EMULSION 10 MG/ML 20 ML VIAL IV ONE (16:25)
[2019-01-30] MEDS ORDERED: DEXAMETHASONE SOD INJ 4 MG/ML VIAL ONE (16:25)
[2019-01-30] MEDS ORDERED: ONDANSETRON INJ 2 MG/ML 2 ML VIAL ONE (16:25)
--- NOTE | 2019-01-30 16:40 | Operative Report ---
Post Operative Report Pre & Post Diagnosis Operation Date: 01/30/19 15:00 Pre-Op Diagnosis: PAIN IN RIGHT SIDE Post-Op Diagnosis: Appendicitis I identified the patient and participated in the time-out.: Yes Procedure Operation Date: 01/30/19 15:00 Actual Procedures p Laparoscopic Appendectomy - Jaycee Leonardo MD Surgeon Jaycee Leonardo MD Attendant Lodging Facilities none Estimated Blood Loss 5 Findings Consistent with Post-Op Diagnosis Specimens appendix Description of Procedure see dictated operative report I attest to the content of the Intraoperative Record and any orders documented therein. Any exceptions are noted below.
[2019-01-30] MEDS: fentaNYL citrate 100 MCG/2 ML VIAL IV PRN ×4 (17:15→17:30)
--- NOTE | 2019-01-30 17:37 | Anesthesiology Progress Note ---
Date of Service January 30, 2019 Anesthesia Post Procedure Vital Signs Vital Signs: Temp Pulse Pulse Resp BP BP Pulse Ox 01/30/19 17:30 37.1 C 97 H 20 110/73 97 01/30/19 17:20 90 18 106/64 97 01/30/19 17:10 105 H 16 106/68 100 01/30/19 17:00 105 H 16 101/55 L 100 01/30/19 16:53 36.9 C 113 H 16 120/61 100 01/30/19 13:14 92 H 16 103/64 99 01/30/19 11:00 69 16 92/49 L 98 01/30/19 09:35 70 16 95/50 L 100 01/30/19 07:41 36.5 C 83 20 92/63 L 100 Pain Intensity Right Flank: Pain Intensity: 5 Abdomen: Pain Intensity: 4 Transfer of Care Handoff Completed per policy Notes Mental Status: alert / awake / arousable Patient Amnestic to Procedure: Yes Nausea / Vomiting: adequately controlled Pain: adequately controlled Airway Patency, RR, SpO2: stable & adequate BP & HR: stable & adequate Hydration State: stable & adequate Anesthetic Complications: no major complications apparent
[2019-01-30] MEDS: LACTATED RINGER'S 1,000 ML IV SCH (18:00)
[2019-01-30] MEDS ORDERED: HYDROCODONE/ACETAMOPHEN 5/325MG TAB PO PRN ×2 (18:18)
[2019-01-30] MEDS ORDERED: MoRPHine SULFATE 2 MG/ML CARP IV PRN ×3 (18:18)
[2019-01-30] MEDS ORDERED: KETOROLAC TROMETHAMINE 15 MG/ML VIAL IV PRN (18:18)
--- NOTE | 2019-01-30 19:38 | Operative Report ---
DATE OF OPERATION: 01/30/2019 PREOPERATIVE DIAGNOSIS: Acute appendicitis. POSTOPERATIVE DIAGNOSIS: Acute appendicitis. OPERATIVE PROCEDURE: Laparoscopic appendectomy. SURGEON: Jaycee Leonardo MD YEAST CULTURE DEVELOPER: None. ANESTHESIA: General endotracheal anesthesia. ESTIMATED BLOOD LOSS: 5 mL. INTRAVENOUS FLUIDS: 750 mL. SPECIMENS: Appendix. DRAINS: None. COMPLICATIONS: None. INDICATIONS: Ms. Gallego is a 23-year-old woman who presented with early acute appendicitis. She was counseled regarding laparoscopic appendectomy. She consented to proceed. DESCRIPTION OF PROCEDURE: The patient received Mefoxin preoperatively. After the induction of general endotracheal anesthesia, she had placement of sequential compression devices. She was positioned with her left arm tucked. Her abdomen was sterilely prepped and draped. She was positioned in Trendelenburg. A supraumbilical incision was made just below the patient's umbilical ring and this was carried down towards the fascia. Veress needle was placed into the abdominal cavity on the first pass. Initial pressure was 2 mmHg. This was tested with the saline drop test prior to insufflation. Once 15 mmHg was reached, a 5-mm trocar was placed. An additional 5 mm was placed in the left lower quadrant under direct vision. The umbilical trocar was switched out to a 12 mm under direct vision. Then a second 5-mm was placed in the midline pubic area under direct vision. The appendix was easily visualized coursing into the pelvis. This was dilated with hyperemia, but no acute suppurative changes. A window was created at the base of the appendix on the cecum and the appendix was divided off the cecum with a firing of the YUMIKO 45 stapler. The appendiceal mesentery was taken with 2 firings of the YUMIKO 45 justin load stapler. The appendix was placed in an Endobag and removed through the umbilical incision. The abdomen was irrigated and suctioned clear. A 30 mL of 0.5% Marcaine had been used for local anesthesia. The trocars were removed. The fascia of the umbilical incision was closed with 0 Vicryl stitches placed anteriorly. The skin of all 3 incisions were closed with running subcuticular 4-0 Vicryl sutures. Steri-Strips, sterile dressings were applied. She was awakened and taken to recovery in stable condition. I attest to the content of the Intraoperative Record and any orders documented therein. Any exception s are noted below.
[2019-01-30] MEDS: ACETAMINOPHEN 325 MG TAB PO PRN (21:25)
[2019-01-31] MEDS: LACTATED RINGER'S 1,000 ML IV SCH (02:26)
[2019-01-31] MEDS: ACETAMINOPHEN 325 MG TAB PO PRN (09:33)
--- NOTE | 2019-01-31 10:35 | Surgery Progress Note ---
Date of Service January 31, 2019 Assessment & Plan (1) Acute appendicitis: s/p lap appendectomy. Doing well. Will discharge today. Postop instructions reviewed. Present on Admission?: Yes Subjective Feels well. Tolerated diet. Pain well managed. No concerns. Review of Systems Review of Systems: All systems reviewed & are unremarkable except as noted in HPI & below Physical Exam Constitutional: WD/WN, vitals as above Respiratory: normal respiratory effort, lungs clear to auscultation Cardiovascular: RRR, no murmur, no edema Gastrointestinal (Abdomen): normal bowel sounds, soft, nontender, no hepatosplenomegaly incisions clean and intact Neurologic: no focal motor deficits Results & Data Vital Signs (Past 12 Hours) Vital Signs Temp Pulse Resp BP Pulse Ox 01/31/19 07:13 36.8 C 90 19 97/60 L 97 01/31/19 03:39 36.7 C 75 14 97/60 L 98 01/30/19 23:15 36.9 C 87 12 100/65 99 (1) Acute appendicitis Acute appendicitis type: with localized peritonitis Appendicitis abscess presence: without abscess Appendicitis gangrene presence: without gangrene Appendicitis perforation presence: without perforation Qualified Code(s): K35.30 - Acute appendicitis with localized peritonitis, without perforation or gangrene
--- NOTE | 2019-01-31 10:35 | Discharge Summary ---
Date of Service January 31, 2019 Admission HPI Per Admitting Provider 23 yr old woman presents with a few hours of localized, sharp, intense right lower quadrant pain, worse with movement, laughter, somewhat better with pain meds, associated with nausea/ dry heaving this morning. No fevers/ chills. Bladen anorexic with last meal last evening. No similar episodes in past. No radiation of the pain. Admission Exam (Per Admitting) Constitutional WD/WN, vitals as above Eyes PERRL, conjunctivae normal, anicteric sclerae ENMT Ears: no hearing impairment Neck normal visual inspection and trachea midline Respiratory normal respiratory effort, lungs clear to auscultation Cardiovascular RRR, no murmur, no edema Gastrointestinal (Abdomen) normal bowel sounds, soft, nontender, no hepatosplenomegaly Inspection/Auscultation: abdomen normal to inspection and normal bowel sounds; abdomen not distended Percussion/Palpation: + abdomen tender (rlq over mcburney's point), + guarding (rlq) and abdomen soft Neurologic moves all extremities; no focal motor deficits Psychiatric A+Ox3, euthymic affect Discharge Data Procedures Performed Operation Date: 01/30/19 15:00 Actual Procedures p Laparoscopic Appendectomy - Jaycee Leonardo MD Hospital Course (1) Acute appendicitis: s/p lap appendectomy. Doing well. Will discharge today. Postop instructions reviewed. Discharge Instructions OK to walk/ stairs regular diet f/u 2 weeks
== END 2019-01-31 13:00 | disposition home or self-care (01) ==
LOC: ED 07:35 → 3W 15:12 → ASU 15:12
DX: K35.80 Unspecified acute appendicitis

== ENCOUNTER 2020-10-01 17:20 | Inpatient (IN) ==
[2020-10-01] MEDS ORDERED: OXYTOCIN 30 UNITS/500 ML BAG IV PRN (17:48)
--- NOTE | 2020-10-01 17:59 | History & Physical Report ---
Date of Service October 01, 2020 Assessment & Plan (1) Normal labor: Plan: IUP at 39+ weeks in early labor with advanced dilation. She is not very uncomfortable yet, so she will walk for several hours and be rechecked. AROM when possible to facilitate contraction strength epidural when requested anticipate vaginal History of Present Illness Primary Care Provider: Iraj Calderon MD Patient is a 25 yo white female EDC 10/06/20 who presents at 39+ weeks with increased contractions and bloody show today. (-)SPROM has been uncomplicated. GBS -negative Allergies Allergy/AdvReac Type Severity Reaction Status Date / Time shrimp Allergy Numbness Verified 10/01/20 17:29 Home Medications Medication Instructions Recorded Confirmed Type ferrous sulfate 325 mg (65 mg 325 mg PO DAILY 08/09/20 10/01/20 History iron) tablet (Iron (ferrous sulfate)) prenat.vits,guy,[id number]-[id number]-[id number] 1 tab PO DAILY 08/09/20 10/01/20 History Patient History Medical History Encounter for annual routine gynecological examination H/O varicella Vulvar cellulitis Surgical History S/P appendectomy S/P wisdom tooth extraction Family History Grandmother (Maternal) Hypertension Mother Migraine headache Social History Smoking Status: Never smoker Second Hand Exposure: No; Do You Dip or Chew Tobacco: No; Tobacco Cessation Education Requested by Patient: No Hx Alcohol Use: No Hx Substance Use: No Preferred Language: American Communication Ability: Effective Visual Impairment: Limited Hearing Ability: Normal Inspector And Tester Required: No Beliefs That Will Affect Care: None marital status: Single marital status details: RUT: Rene (25) [phone] Current Living Situation: Family Current Living Situation Comment: Lives with Stefanie current occupational status: employed and unemployed current occupation: Bankruptcy Law Specialist @ [employer] How many Children do You have: 1 Other Information That Helps Us Care for You: No Feels Safe at Home: Yes Safety Concerns: Feels Safe At This Time Childhood Exposure to Second-Hand Smoke: No caffeine: No Dental Care, Regularly: Yes Seatbelt Use: always Do you think of yourself as: straight/heterosexual Gender Identity: Female Assistive Devices: None Review of Systems All systems reviewed & are unremarkable except as noted in HPI & below Physical Exam Constitutional: WD/WN, vitals as above Respiratory: normal respiratory effort, lungs clear to auscultation Cardiovascular: RRR, no murmur, no edema Gastrointestinal (Abdomen): normal bowel sounds, soft, nontender, no hepatosplenomegaly Psychiatric: A+Ox3, euthymic affect Genitourinary: OB Exam Abdomen: + vertex and + regular contractions (q2-4 minutes) Manual OB Exam: + cervical dilation (very posterior) 5 cm, + cervical effacement 80% and + station -2 OB Exam Monitor Tracing: + external FHT monitor used, + external uterine monitor used, + category I and + normal FHT variability Results & Data ([facility]) Vital Signs (Past 12 Hours) Vital Signs Temp Pulse Resp BP 10/01/20 17:37 98.2 F 90 20 111/67 Code Status & VTE Plan VTE Prophylaxis Plan VTE Prophylaxis will be ordered: No Coding Level of Care Code None Diagnoses Normal labor O80; Z37.9
[2020-10-01 18:14] LABS: Hematocrit (blood only) 37.4 % (37-47); Hemoglobin 12.4 g/dL (12.0-16.0); Mean Corpuscular Hemoglobin 30.2 pg (25-34); Mean Corpuscular Hgb Conc 33.2 g/dL (32-36); Mean Corpuscular Volume 91.2 fL (80-100); Mean Platelet Volume 11.6 fL (7.4-10.4); Platelet Count 220 K/uL (130-400); RDW Coefficient of Variation 13.6 % (11.5-14.5); RDW Standard Deviation 45.2 fL (36.4-46.3); White Blood Count 8.41 K/uL (4.8-10.8)
[2020-10-01] MEDS: LACTATED RINGER'S 1,000 ML IV PRN ×2 (20:47→21:48)
[2020-10-01] MEDS ORDERED: fentaNYL citrate 100 MCG/2 ML VIAL ONE (20:53)
[2020-10-01] MEDS ORDERED: ePHEDrine sulfate 50 MG/ML AMP ONE (20:53)
[2020-10-01] MEDS ORDERED: BUPIVACAINE 0.25% 30 ML VIAL ONE (20:53)
[2020-10-01] MEDS ORDERED: SODIUM CHLORIDE 0.9% INJ 10 ML VIAL ONE (20:53)
[2020-10-01] MEDS ORDERED: ePHEDrine sulfate 50 MG/ML AMP IV PRN (20:54)
[2020-10-01] MEDS ORDERED: fentaNYL 2MCG/ML ROPIVACAINE 1.25MG/ML 100 ML BAG EPI ONE (20:54)
[2020-10-01] MEDS ORDERED: NALOXONE HCL 0.4 MG/1 ML VIAL/CARP IV PRN (20:54)
[2020-10-01] MEDS ORDERED: PROMETHAZINE HCL 25 MG in SODIUM CHLORIDE 0.9% 50 ML IV PRN (20:54)
[2020-10-01] MEDS ORDERED: diphenhydrAMINE 50 MG/ML VIAL IV PRN (20:54)
[2020-10-01] MEDS ORDERED: NALBUPHINE HCL INJ 10 MG/ML AMP IV PRN (20:54)
[2020-10-01] MEDS ORDERED: NALOXONE HCL 1 MG in SODIUM CHLORIDE 0.9% 1000ML 1,000 ML IV PRN (20:54)
[2020-10-01] MEDS ORDERED: ONDANSETRON INJ 2 MG/ML 2 ML VIAL IV PRN (20:54)
[2020-10-01] MEDS ORDERED: fentaNYL 2MCG/ML ROPIVACAINE 1.25MG/ML 100 ML BAG EPI PRN (20:54)
--- NOTE | 2020-10-01 20:54 | Anesthesiology Consultation ---
Date of Service October 01, 2020 Assessment & Plan ASA ASA2 Proposed Anesthesia Anesthesia Type: Labor Epidural Risk / Benefits Reviewed With: PT / POA / Parent / Guardian, Accepts Plan and Informed Consent Obtained History Height/Weight Height: 5 ft 4 in Weight: 61.575 kg Allergies Allergy/AdvReac Type Severity Reaction Status Date / Time shrimp Allergy Numbness Verified 10/01/20 17:29 Medications Home Medications Medication Instructions Recorded Confirmed Last Taken ferrous sulfate 325 mg (65 mg 325 mg PO DAILY 08/09/20 10/01/20 09/30/20 21:00 iron) tablet (Iron (ferrous sulfate)) prenat.vits,guy,xsg-wocn-jegak 1 tab PO DAILY 08/09/20 10/01/20 09/30/20 21:00 Active Medications Generic Name Dose Route Start Last Admin Trade Name Freq PRN Reason Stop Dose Admin Lactated Ringer's 1,000 mls @ 125 mls/hr 10/01/20 17:48 10/01/20 20:47 Lr IV 10/03/20 17:47 999 mls/hr .Q8H PRN Administration L&D Protocol Protocol Ropivacaine 100 ml 10/01/20 20:54 10/01/20 21:32 Fentanyl 2mcg/Ml Ropivacaine 1.25mg/Ml 100 Ml Bag EPI 10/02/20 20:53 100 ml PRN PRN Administration Pain R/T Labor Protocol Past Medical History Medical History Encounter for annual routine gynecological examination H/O varicella Vulvar cellulitis Exercise / Class Metabolic Activity II 4-5 Yardwork/Stairs/Walk up hill Past Family History Family History Grandmother (Maternal) Hypertension Mother Migraine headache Past Surgical History Surgical History S/P appendectomy S/P wisdom tooth extraction Past Anesthesia History No Hx of Anesthesia Complications and No Family Hx of Anesthesia Complications History of PONV No Hx of PONV and No Hx of Motion Sickness Social History Smoking Status: Never smoker Do You Dip or Chew Tobacco: No Hx Alcohol Use: No Hx Substance Use: No substance use type: does not use Review of Systems denies fever/cough/ colds/ chest pain/ SOB/ ANEESH denies ANEESH Physical Exam Vital Signs Last Vital Signs Temp 36.8 C 10/01/20 21:05 Pulse 88 10/01/20 21:43 Resp 18 10/01/20 19:20 BP 102/59 L 10/01/20 21:43 Pulse Ox 100 10/01/20 21:40 ENMT Mouth: no TMJ abnormality and no dentition abnormality Thyromental Distance: > or= 3.5 Finger Breadths Mallampati Class: II Neck neck extension not limited Respiratory normal respiratory effort; no respiratory distress Auscultation: lungs clear to auscultation bilaterally Cardiovascular Rate/Rhythm: regular rate and regular rhythm Neurologic moves all extremities Psychiatric Orientation: alert and oriented x 3 Testing Laboratory Results 10/01/20 17:57
--- NOTE | 2020-10-01 23:50 | Delivery Summary ---
Vaginal Delivery Summary Date of Service October 01, 2020 Vaginal Delivery Summary Patient is a 25-year-old 2 para 1-0-0-1 white female who presented with regular contractions. She had cervical change and was requesting epidural analgesia. After she was comfortable, membranes were ruptured for clear fluid. She progressed to full dilation and pushed effectively over intact perineum for a viable male . After the head was delivered there was a mild shoulder dystocia resolved with hyperflexion of the hips. The posterior arm was delivered as well and then the rest of the delivered easily. He was vigorous and moving all 4 limbs. After 1 minute the cord was clamped and cut. The placenta was expressed intact with a three-vessel cord. bleeding was controlled with dilute Pitocin. A first-degree left labial laceration was repaired with 3-0 chromic in usual fashion. Estimated blood loss was 250 cc. Mother and were doing well after delivery. [facility] Vaginal Delivery Charge Vaginal Delivery Codes: 56193 global code for the antepartum, delivery, and post-
[2020-10-02] MEDS ORDERED: BENZOCAINE 20% AER SPR 82.5 GM CAN EXT PRN (00:42)
[2020-10-02] MEDS ORDERED: OXYTOCIN 30 UNITS/500 ML BAG IV PRN (00:42)
[2020-10-02] MEDS ORDERED: oxyCODONE/ACETAMINOPHEN 5mg/325mg TAB PO PRN (00:42)
[2020-10-02] MEDS ORDERED: DIPHTHERIA/TETANUS/PERTUSSIS 0.5 ML SYR/VIAL IM ONE (00:42)
[2020-10-02] MEDS ORDERED: bisacodyL 10 MG SUPP PR PRN (00:42)
[2020-10-02] MEDS ORDERED: SUPERCREAM 0.870% 15 GM JAR EXT PRN (00:42)
[2020-10-02] MEDS ORDERED: HYDROCORTISONE ACETATE 25 MG SUPP PR PRN (00:42)
[2020-10-02] MEDS: IBUPROFEN 600 MG TAB PO PRN ×3 (02:18→17:38)
--- NOTE | 2020-10-02 06:50 | Obstetrical Progress Note ---
Date of Service <Thais Osullivan MD - Last Filed: 10/03/20 06:42> October 02, 2020 Assessment & Plan <Thais Osullivan MD - Last Filed: 10/03/20 06:42> (1) Encounter for care and examination after delivery: Stable, improving -GBS-, Rh+, RI -regular diet -encourage ambulation -bottle feeding -labs pending (2) Normal labor: (3) Encounter for supervision of normal in multigravida, antepartum: <Evie Stark MD, FACOG - Last Filed: 10/02/20 09:05> (1) Encounter for care and examination after delivery: (2) Normal labor: (3) Encounter for supervision of normal in multigravida, antepartum: Subjective <Thais Osullivan MD - Last Filed: 10/03/20 06:42> 25 y/o female who is now PPD #1 following spontaneous vaginal delivery at 39 weeks. Reports feeling well overall this morning. Denies abdominal cramping, pain well managed on analgesics. Voiding +. Tolerating meals well and able to ambulate some. Denies passing gas or bowel movements. Some persistent lochia with some improvement this morning. Bottle feeding. Review of Systems Denies fever, chills, sweats Denies shortness of breath, difficulty breathing, chest pain, palpitations, chest pressure. Denies breast pain. Denies dysuria. Denies headache or changes in vision Review of Systems All systems reviewed & are unremarkable except as noted in HPI & below Physical Exam <Thais Osullivan MD - Last Filed: 10/03/20 06:42> General: Alert, oriented. No acute distress. Cardiac: Regular rate and rhythm, no murmurs/rubs/gallops. Respiratory: Clear to auscultation bilaterally a/p, no wheezes/rales/rhonchi. No increased work of breathing. Symmetrical chest rise. No respiratory distress. Abdomen: Soft, nontender, nondistended. Bowel sounds present. Uterus: Uterine fundus firm, palpable 3 cm below umbilicus. Lower Extremities: No lower extremity edema or swelling. No deep calf pain. Lizbeth's negative bilaterally.. Constitutional WD/WN, vitals as above Results & Data ([place]) <Thais Osullivan MD - Last Filed: 10/03/20 06:42> Vital Signs (Past 12 Hours) Vital Signs Temp Pulse Pulse Resp BP BP Pulse Ox 10/02/20 02:25 36.8 C 85 16 109/67 99 10/02/20 01:45 18 10/02/20 01:19 83 101/59 L 10/02/20 01:15 18 10/02/20 01:04 88 98/57 L 10/02/20 00:49 105 H 110/61 10/02/20 00:45 18 10/02/20 00:34 84 103/57 L 10/02/20 00:30 18 10/02/20 00:19 100 H 107/57 L 10/02/20 00:15 18 10/02/20 00:04 91 H 102/56 L 10/02/20 00:00 18 10/01/20 23:49 100 H 108/56 L 10/01/20 23:45 18 10/01/20 23:34 93 H 109/55 L 10/01/20 23:25 113 H 100 10/01/20 23:20 108 H 100 10/01/20 23:15 92 H 100 10/01/20 23:10 99 H 100 10/01/20 23:05 86 104/55 L 99 10/01/20 23:00 98 H 18 99 10/01/20 22:55 91 H 100 10/01/20 22:50 101 H 98 10/01/20 22:49 96 H 105/54 L 10/01/20 22:45 92 H 100 10/01/20 22:40 84 99 10/01/20 22:35 105 H 114/63 99 10/01/20 22:30 92 H 18 100 10/01/20 22:25 88 99 10/01/20 22:20 109 H 98 10/01/20 22:19 88 112/62 10/01/20 22:15 94 H 98 10/01/20 22:10 84 99 10/01/20 22:06 86 102/55 L 10/01/20 22:05 87 99 10/01/20 22:01 87 80/57 L 10/01/20 22:00 88 18 98 10/01/20 21:59 86 106/55 L 10/01/20 21:57 84 111/69 10/01/20 21:55 91 H 103/55 L 99 10/01/20 21:53 99 H 105/58 L 10/01/20 21:50 93 H 109/57 L 98 10/01/20 21:48 93 H 100/52 L 10/01/20 21:47 80 104/52 L 10/01/20 21:46 18 10/01/20 21:45 89 18 96/41 L 99 10/01/20 21:44 18 10/01/20 21:43 88 102/59 L 10/01/20 21:42 18 10/01/20 21:40 87 18 77/40 L 100 10/01/20 21:39 81 88/48 L 10/01/20 21:38 90 18 82/44 L 10/01/20 21:37 96 H 83/46 L 10/01/20 21:36 18 10/01/20 21:35 87 88/51 L 98 10/01/20 21:34 18 10/01/20 21:33 88 103/58 L 10/01/20 21:32 18 10/01/20 21:31 102 H 113/56 L 10/01/20 21:30 98 H 97 10/01/20 21:28 96 H 109/56 L 10/01/20 21:26 100 H 106/55 L 10/01/20 21:25 103 H 98 10/01/20 21:20 104 H 98 10/01/20 21:16 90 94 10/01/20 21:15 89 95 10/01/20 21:11 93 H 107/62 10/01/20 21:10 87 97 10/01/20 21:05 36.8 C 91 H 96 10/01/20 21:00 94 H 97 10/01/20 20:56 89 115/62 10/01/20 20:55 96 H 97 10/01/20 19:20 36.8 C 18 10/01/20 19:11 91 H 111/62 <Evie Stark MD, FACOG - Last Filed: 10/02/20 09:05> Co-Signing Physician Notes Resident Physician Supervision Note: I interviewed and examined the patient. Discussed with Dr. Osullivan and agree with findings and plan as documented in the note. Any exceptions or clarifications are listed here: [None] Documented By: Evie Stark MD, FACOG <Evie Stark MD, FACOG - Last Filed: 10/02/20 09:05> Resident Involvement: Resident Care Provided Care Provided: OB Delivery
[2020-10-02 06:51] LABS: Hematocrit (blood only) 33.8 % (37-47); Hemoglobin 10.9 g/dL (12.0-16.0); Mean Corpuscular Hemoglobin 30.1 pg (25-34); Mean Corpuscular Hgb Conc 32.2 g/dL (32-36); Mean Corpuscular Volume 93.4 fL (80-100); Mean Platelet Volume 11.7 fL (7.4-10.4); Platelet Count 201 K/uL (130-400); RDW Coefficient of Variation 13.6 % (11.5-14.5); RDW Standard Deviation 46.7 fL (36.4-46.3); Red Blood Count 3.62 M/uL (4.2-5.4); White Blood Count 11.33 K/uL (4.8-10.8)
[2020-10-02] MEDS: PRENATAL VITAMIN 1 TAB PO SCH (08:08)
[2020-10-02] MEDS: DOCUSATE SODIUM 100 MG CAP PO SCH ×3 (08:08→19:58)
[2020-10-02] MEDS: ACETAMINOPHEN 325 MG TAB PO PRN ×2 (11:34→23:20)
--- NOTE | 2020-10-02 12:30 | Anesthesia Procedure Note ---
Date of Service October 02, 2020 Anesthesia Post Epidural Note Vital Signs Vital Signs: Temp Pulse Resp BP Pulse Ox 36.8 C 85 16 109/67 99 10/02/20 02:10/02/20 02:10/02/20 02:10/02/20 02:10/02/20 02:25 Pain Intensity Abdomen: Pain Intensity: 1 Notes Mental Status: alert / awake / arousable Nausea / Vomiting: adequately controlled Pain: adequately controlled Airway Patency, RR, SpO2: stable & adequate BP & HR: stable & adequate Hydration State: stable & adequate Neuraxial Anesthesia: was administered and sensory block is resolving Anesthetic Complications: no major complications apparent and Pt Satisfied with anesthetic care Epidural: Removed without complications and With tip intact
[2020-10-02] MEDS ORDERED: bisacodyL 5 MG TABEC PO SCH (20:00)
[2020-10-03] MEDS: ACETAMINOPHEN 325 MG TAB PO PRN (06:40)
--- NOTE | 2020-10-03 06:42 | Obstetrical Progress Note ---
Date of Service <Thais Osullivan MD - Last Filed: 10/03/20 07:38> October 03, 2020 Assessment & Plan <Thais Osullivan MD - Last Filed: 10/03/20 07:38> (1) Encounter for care and examination after delivery: Stable, routine care -GBS-, Rh+, RI -encourage ambulation -bottle feeding -d/c today (2) Normal labor: (3) Encounter for supervision of normal in multigravida, antepartum: <Kayleigh Carrizales DO - Last Filed: 10/03/20 07:49> (1) Encounter for care and examination after delivery: (2) Normal labor: (3) Encounter for supervision of normal in multigravida, antepartum: Subjective <Thais Osullivan MD - Last Filed: 10/03/20 07:38> 25y/o female who is now PPD #2 following spontaneous vaginal delivery. Reports feeling well overall this morning. / pain well managed on analgesics. Voiding +. Tolerating meals well and able to ambulate some. + passing gas but no bowel movements. Some persistent lochia with some improvement this morning. Bottle feeding. Review of Systems Denies fever, chills, sweats Denies shortness of breath, difficulty breathing, chest pain, palpitations, chest pressure. Denies breast pain. Denies dysuria. Denies headache or changes in vision Review of Systems All systems reviewed & are unremarkable except as noted in HPI & below Physical Exam <Thais Osullivan MD - Last Filed: 10/03/20 07:38> General: Alert, oriented. No acute distress. Cardiac: Regular rate and rhythm, no murmurs/rubs/gallops. Respiratory: Clear to auscultation bilaterally a/p, no wheezes/rales/rhonchi. No increased work of breathing. Symmetrical chest rise. No respiratory distress. Abdomen: Soft, nontender, nondistended. Bowel sounds present. Uterus: Uterine fundus firm, palpable 3 cm below umbilicus. Lower Extremities: No lower extremity edema or swelling. No deep calf pain. Lizbeth's negative bilaterally.. Constitutional WD/WN, vitals as above Results & Data ([facility]) <Thais Osullivan MD - Last Filed: 10/03/20 07:38> Vital Signs (Past 12 Hours) Vital Signs Temp Pulse Resp BP Pulse Ox 10/02/20 23:25 36.8 C 84 18 110/73 97 10/02/20 19:30 37.2 C 84 18 114/73 99 <Kayleigh Carrizales DO - Last Filed: 10/03/20 07:49> Co-Signing Physician Notes Resident Physician Supervision Note: I was present with Dr. Osullivan during the history and exam. I discussed the case with the resident and agree with the findings and plan as documented in the note. Any exceptions or clarifications are listed here: PPD#2 doing well. Would like DC home. Reviewed DC instructions. Followup office 6w. Documented By: Kayleigh Carrizales DO Resident Activity Tracking <Thais Osullivan MD - Last Filed: 10/03/20 07:38> Resident Involvement: Resident Care Provided Care Provided: OB Delivery
[2020-10-03 06:56] LABS: Hematocrit (blood only) 35.9 % (37-47); Hemoglobin 11.6 g/dL (12.0-16.0)
[2020-10-03] MEDS: IBUPROFEN 600 MG TAB PO PRN (07:34)
[2020-10-03] MEDS: PRENATAL VITAMIN 1 TAB PO SCH (07:34)
[2020-10-03] MEDS: DOCUSATE SODIUM 100 MG CAP PO SCH (07:35)
== END 2020-10-03 10:24 | disposition home or self-care (01) | DRG 807 ==
LOC: OPB 17:20 → 4S1 17:21 → 4S2 10-02 02:25